=== PATIENT | female | born 1995 | race Caucasian/White ===

== ENCOUNTER 2019-08-12 15:28 | Emergency (ER) | payer OTHER ==
[~2019-08-12] VITALS: Ht 152.4 cm; Wt 59.0 kg
[2019-08-12] MEDS ORDERED: SYNTHROID75 MCG ×2 (15:32→15:33)
== END 2019-08-12 19:26 | disposition home or self-care (01) ==
LOC: ER 15:28
DX: R51 Headache (principal); M54.2 Cervicalgia

== ENCOUNTER 2019-09-16 13:53 | Outpatient (CLI) | payer OTHER ==
[~2019-09-16 13:53] MED LIST: SYNTHROID75 MCG
== END 2019-09-16 14:06 | disposition home or self-care (01) ==
LOC: SONOGRAMA 13:53
DX: E03.8 Other specified hypothyroidism (principal); E04.2 Nontoxic multinodular goiter; R59.9 Enlarged lymph nodes, unspecified